=== PATIENT | female | born 1965 | race Caucasian/White ===

== ENCOUNTER 2021-11-27 21:43 | Emergency (ER) | payer BC, OTHER ==
[~2021-11-27] VITALS: Ht 157.5 cm; Wt 62.0 kg
[2021-11-27 22:17] VITALS: BP 165/94
[2021-11-28] MEDS ORDERED: IBUP-2029 MT (01:45)
[2021-11-28] MEDS ORDERED: ONDA4TAB50 MT (02:02)
== END 2021-11-28 03:07 | disposition home or self-care (01) ==
LOC: ER 21:43
DX: U07.1 COVID-19 (principal)
CPT/HCPCS: 99281; 99282